=== PATIENT | female | born 1980 | race Caucasian/White ===

== ENCOUNTER 2016-06-01 13:31 | Observation (INO) | payer BC ==
[~2016-06-01] VITALS: Ht 167.6 cm; Wt 62.5 kg
[~2016-06-01 13:31] MED LIST: BUPIVACAINE/PF-EPI 0.25% 1:200K ONE; MULT-82 PO
[2016-06-01] MEDS ORDERED: LACTATED RINGERS 1,000 ML IV SCH (13:55)
[2016-06-01 13:56] VITALS: BP 117/76
[2016-06-01] MEDS ORDERED: LIDOCAINE 1%, 2ML SQ PRN (14:00)
[2016-06-01] MEDS ORDERED: FENTANYL PF 250 MCG/5ML ONE (17:19)
[2016-06-01] MEDS ORDERED: MIDAZOLAM 1 MG/ML, 2ML ONE (17:20)
[2016-06-01] MEDS ORDERED: ROCURONIUM 10 MG/ML ONE (18:18)
[2016-06-01] MEDS ORDERED: GLYCOPYRROLATE 0.2MG/1ML ONE (18:18)
[2016-06-01] MEDS ORDERED: PROPOFOL 10 MG/ML, 20ML ONE (18:18)
[2016-06-01] MEDS ORDERED: KETOROLAC 30 MG/1 ML ONE (18:18)
[2016-06-01] MEDS ORDERED: NEOSTIGMINE 1 MG/ML, 10ML ONE (18:18)
[2016-06-01] MEDS ORDERED: SUCCINYLCHOLINE 20 MG/ML, 10ML ONE (18:18)
[2016-06-01] MEDS ORDERED: CEFAZOLIN 1,000 MG ONE (18:18)
[2016-06-01] MEDS ORDERED: DEXAMETHASONE 4 MG/ML, 1ML ONE (18:18)
[2016-06-01] MEDS ORDERED: ONDANSETRON 2MG/ML, 2ML ONE (18:18)
[2016-06-01] MEDS ORDERED: BUPIVACAINE/PF-EPI 0.25% 1:200K INFIL ONE (18:35)
[2016-06-01] MEDS ORDERED: MEPERIDINE/PF 25MG/0.5ML IVPush PRN (19:00)
[2016-06-01] MEDS ORDERED: ONDANSETRON 2MG/ML, 2ML IVPush PRN (19:00)
[2016-06-01] MEDS ORDERED: ACETAMINOPHEN 325 MG TABLET PO PRN (19:00)
[2016-06-01] MEDS ORDERED: PROMETHAZINE 25 MG/ML, 1ML IV PRN (19:00)
[2016-06-01] MEDS ORDERED: MIDAZOLAM 1 MG/ML, 2ML IV PRN (19:00)
[2016-06-01] MEDS ORDERED: hydrALAzine 20 MG/ML, 1ML IV PRN (19:00)
[2016-06-01] MEDS ORDERED: ALBUTEROL SULFATE 2.5 MG/3 ML NPPB PRN (19:00)
[2016-06-01] MEDS ORDERED: LABETALOL 5MG/ML, 20ML IV PRN (19:00)
[2016-06-01] MEDS ORDERED: METOPROLOL 1 MG/ML, 5ML IV PRN (19:00)
[2016-06-01] MEDS ORDERED: EPHEDRINE 50 MG/ML, 1ML IVPush PRN (19:00)
[2016-06-01] MEDS ORDERED: HYDROmorphone 1 MG/ML, 1ML IV PRN ×2 (19:00→22:30)
[2016-06-01] MEDS ORDERED: OXYcodone 5 MG/5 ML ORAL.SOL UDC PO PRN (19:00)
[2016-06-01] MEDS ORDERED: ACETAMINOPHEN 325 MG TABLET ONE (19:59)
[2016-06-01] MEDS ORDERED: FENTANYL PF 100 MCG/2ML ONE (20:14)
[2016-06-01] MEDS: FENTANYL PF 100 MCG/2ML IV PRN ×2 (20:23→20:31)
[2016-06-01 21:00] VITALS: BP 115/77
[2016-06-01] MEDS ORDERED: OXYcodone/APAP 5/325MG TABLET ONE (21:43)
[2016-06-01] MEDS: OXYcodone/APAP 5/325MG TABLET PO PRN (21:47)
[2016-06-01] MEDS ORDERED: KETOROLAC 30 MG/1 ML IVPush PRN (22:30)
[2016-06-01] MEDS ORDERED: IBUPROFEN 600 MG TABLET PO PRN (22:30)
[2016-06-02] MEDS: ONDANSETRON 2MG/ML, 2ML IVPush PRN ×2 (02:23→06:27)
[2016-06-02 03:59] VITALS: BP 83/58
[2016-06-02] MEDS: OXYcodone/APAP 5/325MG TABLET PO PRN (06:27)
[2016-06-02 08:43] VITALS: BP 99/63
[2016-06-02] MEDS ORDERED: MULTIVITAMIN 1 TABLET PO SCH (09:00)
== END 2016-06-02 09:20 | disposition home or self-care (01) ==
LOC: OUT 13:31 → 4NOR 21:00 → OUT 22:01 → 4NOR 22:01
PROVIDERS: ADMIT Obstetrics & Gynecology Female Pelvic Medicine and Reconstructive Surgery; ATTEND Obstetrics & Gynecology Female Pelvic Medicine and Reconstructive Surgery
DX: N93.9 Abnormal uterine and vaginal bleeding, unspecified (principal); N94.6 Dysmenorrhea, unspecified; R10.2 Pelvic and perineal pain; N94.10 Unspecified dyspareunia; N80.3 Endometriosis of pelvic peritoneum; N80.1 Endometriosis of ovary
CPT/HCPCS: 36415; 58558; 58662; 84703; 88305; 96374; 96376; G0378; J0330; J0690; J1100; J1885; J2250; J2405; J2704; J2710; J3010; J7120; J3490